=== PATIENT | female | born 1950 | race African-American/Black ===

== ENCOUNTER 2017-09-29 08:53 | Day surgery (SDC) | payer MEDICARE ==
[2017-09-29] VITALS (11 sets, daily range): BP systolic 149–181; BP diastolic 87–106; BMI 30.2
[~2017-09-29] VITALS: Ht 165.1 cm; Wt 80.7 kg
--- NOTE | ~2017-09-29 | OP ---
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 PROCEDURE: Anterior cervical discectomy and fusion with removal of osteophytes at C3-C4 and C4-C5, PEEK interbody cages, [employer] bone stem cell allograft at C3-C4 and C4-C5, separate anterior cervical plate and screws from [facility]. SURGEON: Juanis Castro MD DESCRIPTION AND TECHNIQUE: After induction of general endotracheal anesthesia, the patient was positioned supine on the operating table. Neck was prepped and draped in usual sterile fashion. Fluoroscopic x-ray and freer localized the C3-C4 interspace. A transverse skin incision was carried out from midline to the sternocleidomastoid muscle. The platysma muscle was divided with Bovie cautery. Using blunt and sharp dissection with Metzenbaum scissors, I proceeded in avascular plane medial to the carotid sheath. C3-C4 and C4-C5 interspaces were identified with fluoroscopic x-ray and a spinal needle. The longus colli muscles were elevated from bodies of C3, C4, and C5. A self-retaining retractor was placed deep to the longus colli muscles. [place] distracting pins were placed in the bodies of C3, C4, and C5. The disc space was incised with a #11 blade. The endplates were prepared with curettes, with microscopic illumination and then a Midas-Kb drill. Osteophytes were drilled away posteriorly with a Midas-Kb drill. The posterior longitudinal ligament was removed with Cloward rongeurs. Following this, the dura was decompressed well in the central canal as well as within the foramen on each side. At the C3-C4 and C4-C5 interspaces, PEEK interbody cages were placed in the disc space under distraction. Prior to this, I filled with [employer] bone stem cell allograft. Next, a separate anterior cervical plate and screws was used to span the C3-C4 and C4-C5 interspaces. Self-drilling screws were placed through the holes and plate. Locking cams were tightened down over the screw heads. Good position of the hardware was confirmed with fluoroscopic x-ray. Meticulous hemostasis was maintained throughout the wound. Wound was irrigated with copious amounts of Ancef irrigant solution. The platysma and subdermal layer was closed with interrupted 3-0 Vicryl suture. The skin was reapproximated with Steri-Strips and benzoin. A sterile dressing was applied to the wound. The patient was awakened in good condition and taken to recovery. All counts reported as correct. Estimated blood loss was minimal. TRANSINT:[id number] Voice Confirmation ID: [id number] DOCUMENT ID: [id number] JUANIS CASTRO MD at 1510 CC: [id number] DICTATION DATE: 10/14/17921 NON LICENSED OPERATOR: 10/14/17 1228 [facility] 10/16/17 [facility] [address] [place] [address]
[~2017-09-29 08:53] MED LIST: ANASTROZOLE1 MG PO; ATIVAN0.5 MG PO; CALAN80 MG PO; DYAZIDE 37.5/251 CAP PO; NEURONTIN 300300 MG PO; ROBAXIN500 MG PO; VITAMIN D31000 UNI2 PO; ZYLOPRIM300 MG PO
[2017-09-29] MEDS ORDERED: K-DUR20 MEQ PO (09:42)
[2017-09-29 09:49] LABS: BASOPHILS 0.1 % (0-2); EOSINOPHILS 0.3 % (0-7); HEMATOCRIT 35.7 % (36.0-48.0); HEMOGLOBIN 11.8 g/dL (12-16); IMMATURE GRANULOCYTES 0.5 % (0-5); LYMPHOCYTES 15.3 % (15-50); MCH 29.3 pg (26.0-34.0); MCHC 33.1 g/dL (31.0-37.0); MCV 88.6 fL (80.0-100.0); MEAN PLATELET VOLUME 9.2 fL (7.4-10.4); MONOCYTES 7.5 % (2-11); NEUTROPHILS 76.3 % (40-80); PLATELET COUNT 338 10x3/uL (130-400); RBC 4.03 10x6/uL (4.00-5.40); RDW 14.6 % (11.5-14.5); WBC 13.7 10x3/uL (4.8-10.8)
[2017-09-29 09:58] LABS: INR 0.95 (0.85-1.17); PROTIME 12.3 SECONDS (11.6-15.0)
[2017-09-29 09:59] LABS: APTT 28.3 SECONDS (22.8-39.4)
[2017-09-30] VITALS (22 sets, daily range): BP systolic 113–177; BP diastolic 48–100
[2017-09-30] MEDS ORDERED: HYDRALAZINE HCL25 MG PO (13:31)
[2017-10-01] VITALS (11 sets, daily range): BP systolic 116–151; BP diastolic 68–97
[2017-10-02 00:20] VITALS: BP 115/69
[2017-10-02 04:49] VITALS: BP 142/82
[2017-10-02 08:18] VITALS: BP 154/89
[2017-10-02 11:20] VITALS: BP 168/86
[2017-10-02 15:09] VITALS: BP 144/90
[2017-10-02 20:00] VITALS: BP 158/88
[2017-10-03] VITALS: BP 147/84
[2017-10-03 04:00] VITALS: BP 123/70
[2017-10-03 08:36] VITALS: BP 147/83
[2017-10-03 11:34] VITALS: BP 144/81
[2017-10-03 15:42] VITALS: BP 133/79
[2017-10-03 21:15] VITALS: BP 157/95
[2017-10-04 01:05] VITALS: BP 129/84
[2017-10-04 05:16] VITALS: BP 115/53
[2017-10-04 07:51] VITALS: BP 154/98
[2017-10-04 11:21] VITALS: BP 153/88
[2017-10-04 15:07] VITALS: BP 145/90
[2017-10-04 20:00] VITALS: BP 136/85
[2017-10-05] VITALS: BP 146/80
[2017-10-05 04:00] VITALS: BP 143/84
[2017-10-05 09:14] VITALS: BP 127/87
[2017-10-05 11:40] VITALS: BP 143/86
[2017-10-05 15:36] VITALS: BP 154/86
[2017-10-05 20:00] VITALS: BP 129/82
[2017-10-06] VITALS: BP 126/78
[2017-10-06 04:00] VITALS: BP 137/76
[2017-10-06 07:59] VITALS: BP 146/84
[2017-10-06 11:27] VITALS: BP 149/90
[2017-10-06 15:22] VITALS: BP 162/90
[2017-10-06 20:00] VITALS: BP 119/77
[2017-10-07] VITALS: BP 131/74
[2017-10-07 04:00] VITALS: BP 149/78
[2017-10-07 08:30] VITALS: BP 146/83
[2017-10-07 11:04] VITALS: BP 152/78
[2017-10-07 16:52] VITALS: BP 144/72
[2017-10-07 20:11] VITALS: BP 126/80
[2017-10-08 00:11] VITALS: BP 125/83
[2017-10-08 05:39] VITALS: BP 151/100
[2017-10-08 08:29] VITALS: BP 159/92
[2017-10-08 11:45] VITALS: BP 135/75
[2017-10-08 12:42] VITALS: Ht 165.1 cm; Wt 80.7 kg
[2017-10-08 20:00] VITALS: BP 143/79
[2017-10-09] VITALS (7 sets, daily range): BP systolic 135–170; BP diastolic 68–97
[2017-10-10 01:00] VITALS: BP 143/79
[2017-10-10 04:00] VITALS: BP 130/75
[2017-10-10 08:53] VITALS: BP 136/68
[2017-10-10 11:43] VITALS: BP 146/75
[2017-10-10 15:17] VITALS: BP 161/78
[2017-10-10 20:00] VITALS: BP 128/78
[2017-10-11] VITALS: BP 148/84
[2017-10-11 04:00] VITALS: BP 150/86
[2017-10-11 08:44] VITALS: BP 139/81
[2017-10-11 11:42] VITALS: BP 125/76
[2017-10-11 15:23] VITALS: BP 172/90
[2017-10-11 20:00] VITALS: BP 133/81
[2017-10-12 04:00] VITALS: BP 134/86
[2017-10-12 08:19] VITALS: BP 154/96
[2017-10-12 12:00] VITALS: BP 145/87
[2017-10-12 15:00] VITALS: BP 163/88
[2017-10-12 20:50] VITALS: BP 141/84
[2017-10-13 01:02] VITALS: BP 132/82
[2017-10-13 05:30] VITALS: BP 138/83
[2017-10-13 07:43] VITALS: BP 144/90
[2017-10-13 15:50] VITALS: BP 179/102
[2017-10-13 20:00] VITALS: BP 132/80
[2017-10-14] VITALS (7 sets, daily range): BP systolic 118–176; BP diastolic 64–95
[2017-10-15 04:05] VITALS: BP 138/82
[2017-10-15 08:05] VITALS: BP 155/80
[2017-10-15 11:49] VITALS: BP 136/73
[2017-10-15 16:05] VITALS: BP 120/87
[2017-10-15 21:16] VITALS: BP 138/91
[2017-10-16 01:25] VITALS: BP 108/67
[2017-10-16 04:56] VITALS: BP 114/72
[2017-10-16 07:41] VITALS: BP 137/87
[2017-10-16 11:21] VITALS: BP 110/65
== END 2017-10-16 18:10 ==
LOC: D.OPS 08:53 → D.M2 08:53 → D.OPS 09:30 → D.PAN 09:30 → D.ICU 16:43 → D.M2 10-01 20:30 → D.OPS 10-16 18:10
PROVIDERS: Anesthesiology
DX: M50.01 Cervical disc disorder with myelopathy, high cervical region (principal); M50.021 Cervical disc disorder at C4-C5 level with myelopathy; I10 Essential (primary) hypertension; Z01.812 Encounter for preprocedural laboratory examination